=== PATIENT | male | born 1945 | race Caucasian/White ===

== ENCOUNTER 2016-12-01 10:01 | Outpatient (CLI) | payer MEDICARE ==
--- NOTE | 2016-12-01 11:20 | XRAY Report ---
TWO VIEW CHEST: 12/01/2016 CLINICAL INDICATION: Shortness of breath. FINDINGS: Frontal and lateral views of the chest demonstrate a normal cardiac silhouette. The lungs are clear. No effusion or pneumothorax is present. IMPRESSION: NORMAL CHEST. JOB #: [id number] EXT JOB #:[id number]
== END 2016-12-01 10:02 | disposition home or self-care (01) ==
LOC: DI.S 10:01
PROVIDERS: ATTEND Nurse Practitioner Family
DX: R06.02 Shortness of breath (principal); R07.9 Chest pain, unspecified
CPT/HCPCS: 71020

== ENCOUNTER 2016-12-28 12:15 | Outpatient (CLI) | payer MEDICARE ==
--- NOTE | 2017-01-02 11:43 | Ultrasound Report ---
CAROTID DUPLEX: 12/28/2016 CLINICAL INDICATION: Vertigo. TECHNIQUE: Real-time sonographic vascular imaging was performed by the revenue enforcement agent through the carotid arteries utilizing both color-flow and Doppler spectral analysis. Multiple union representative static images were saved for review. Vessel PSV cm/sec 2D Plaque Estimate % EDV cm/sec ICA/CCA PSV % Stenosis RCCA Prox 100 -- RCCA Dist 62 15 -- RECA 78 -- RT BULB 76 -- 24 1.23 REMY Prox 78 -- 19 1.26 REMY Mid 80 -- 30 1.29 REMY Dist 76 -- 28 1.23 RVA 29 RVA flow direction: Antegrade. Vessel PSV cm/sec 2D Plaque Estimate % EDV cm/sec ICA/CCA PSV % Stenosis LCCA Prox 87 -- LCCA Dist 62 16 -- LECA 62 -- LFT BULB 56 -- 20 0.90 LICA Prox 87 -- 24 1.40 LICA Mid 91 -- 28 1.47 LICA Dist 66 -- 22 1.06 LVA 47 LVA flow direction: Antegrade. Velocity criteria are extrapolated from diameter data as defined by the Society of Radiologists in Ultrasound Consensus Conference Radiology 2003; 229; 340-346. Degree of Stenosis % ICA PSV cm/sec Plaque Estimate % ICA/CCA RSV Ratio ICA EDV cm/sec Normal < 125 None < 2.0 < 40 <50 < 125 < 50 < 2.0 < 40 50-69 125 - 130 >/= 50 2.0 - 4.0 40 - 100 >/= 70 but less than near occlusion > 230 >/= 50 > 4.0 > 100 Near occlusion High, low, or undetectable Visible lumen Variable Variable Total occlusion Undetectable No detectable lumen Not applicable Not applicable FINDINGS RIGHT: There is minimal plaquing in the right carotid bifurcation, without evidence of a focal hemodynamically significant stenosis. LEFT: There is minimal plaquing in the left carotid bifurcation, without evidence of a focal hemodynamically significant stenosis. The vertebral arteries demonstrate antegrade flow bilaterally. IMPRESSION: MINIMAL PLAQUING BILATERALLY. NO EVIDENCE OF A FOCAL HEMODYNAMICALLY SIGNIFICANT CAROTID STENOSIS. MTDD
== END 2016-12-28 12:16 | disposition home or self-care (01) ==
LOC: DI 12:15
PROVIDERS: ATTEND Nurse Practitioner Family
DX: R42 Dizziness and giddiness (principal); R07.89 Other chest pain; E78.5 Hyperlipidemia, unspecified
CPT/HCPCS: 93017; 93880

== ENCOUNTER 2016-12-28 13:54 | Outpatient (CLI) | payer MEDICARE ==
--- NOTE | 2016-12-29 03:37 | CARDIAC PROCEDURE NOTE ---
DATE OF SERVICE: 12/28/2016 00:00:00 PRIMARY CARE PHYSICIAN: RA Antunez. PROCEDURE: Cardiac treadmill stress test. REASON FOR PROCEDURE: Chest pain. CARDIAC RISK FACTORS: Include age and hyperlipidemia. PREVIOUS CARDIAC PROCEDURES: None. CLINICAL HISTORY: A 71-year-old male without known coronary artery disease. INITIAL RESTING VITAL SIGNS: Blood pressure 150/82, heart rate 67, height 71 inches, weight 205 pound s, BMI 28.2. PROCEDURE AND FINDINGS: The patient's identity and date verified. Consent signed. The patient p erformed treadmill exercise using a Ben protocol completing 6 minutes 15 seconds and completing an estimated workload of 7.0 metabolic equivalents. Predicted exercise time was 6 minutes 45 seconds to 6 minutes 55 seconds. Maximal blood pressure was 198/72 with a heart rate of 148 beats per minute or 100% of maximum predicted heart rate for age. The blood pressure response to exercise was within norm al limits. The patient stopped because of symptoms of shortness of breath and he achieved 100% predic libertad heart rate. The resting ECG demonstrated normal sinus rhythm with no abnormalities. Maximum ST se gment depression was less than 0.5 mm and upsloping. There was no ectopy. The 1 minute of recovery he art rate was within normal limits. FINAL IMPRESSION 1. Negative stress electrocardiogram for ischemia by electrocardiographic criteria. 2. Negative stress test clinically for angina. 3. No ectopy or arrhythmia. 4. [place] [employer] functional class 1. JOB #: [id number] EXT JOB #:[id number]
[2017-01-02 16:02] VITALS: BP 150/82
== END 2016-12-28 13:55 | disposition home or self-care (01) ==
LOC: DI 13:54
PROVIDERS: ATTEND Nurse Practitioner Family
DX: R07.89 Other chest pain (principal)
CPT/HCPCS: 93017

== ENCOUNTER 2017-07-31 19:24 | Outpatient (CLI) | payer MEDICARE ==
--- NOTE | 2017-08-01 09:48 | XRAY Report ---
TWO VIEW LEFT LOWER LE07/31/2017 CLINICAL INDICATION: Calf pain. FINDINGS: Frontal and lateral views of the left lower leg demonstrate no evidence of fracture or dislocation. No radiopaque foreign body is seen in the soft tissues. IMPRESSION: NORMAL LEFT LOWER LEG. TD: 08/01/2017 09:47
--- NOTE | 2017-08-01 10:04 | Ultrasound Report ---
EXAM: LEFT LOWER EXTREMITY VENOUS ULTRASOUND EXAM DATE: 07/31/2017 07:37 PM. CLINICAL HISTORY: PERSISTENT CALF PAIN X 1.5 MO, LOWER LEG PAIN . ASSESS FOR DVT. COMPARISON: None. TECHNIQUE: Real-time sonographic vascular imaging was performed by the salon supervisor through the lower extremity utilizing both color-flow and Doppler spectral analysis. Multiple financial services sales representative static alessio ges were saved for review. FINDINGS: Common Femoral Vein (CFV): Normal. CFV-GSV Junction: Normal. Profunda Femoral Vein (PFV): Normal. Femoral Vein (FV) Prox: Normal. Femoral Vein (FV) Mid: Normal. Femoral Vein (FV) Dist: Normal. Popliteal Vein: Normal. Posterior Tibial Veins: Normal. Peroneal Veins: Normal. Other: Along the left knee is pocket of fluid measuring 4.9 x 1.2 x 3.3 cm which appears to represent a left knee effusion. IMPRESSION: 1. No evidence of left lower extremity deep venous thrombosis. 2. Left knee effusion. [facility] Referring Provider Line: [phone] SITE ID: [id number]
--- NOTE | 2017-08-01 15:14 | XRAY Report ---
THREE VIEW LEFT KNEE: 07/31/2017 CLINICAL INDICATION: Calf pain. FINDINGS: AP, lateral, sunrise views of the left knee demonstrate no evidence of fracture or dislocation. The joint spaces are preserved. No effusion is present. IMPRESSION: NORMAL LEFT KNEE. TD: 08/01/2017 09:49 MTDD
== END 2017-07-31 19:25 | disposition home or self-care (01) ==
LOC: DI 19:24
PROVIDERS: ATTEND Registered Nurse
DX: M79.662 Pain in left lower leg (principal); M25.462 Effusion, left knee

== ENCOUNTER 2018-09-09 16:25 | Outpatient (CLI) | payer MEDICARE ==
--- NOTE | 2018-09-10 09:48 | XRAY Report ---
Reason: COUGH Procedure Date: 09/09/2018 Accession Number: [id number] / [id number] Procedure: XR - Chest 2 View X-Ray CPT Code: 28752 FULL RESULT: EXAM: CHEST RADIOGRAPHY EXAM DATE: 09/09/2018 04:33 PM. CLINICAL HISTORY: COUGH. COMPARISON: CHEST 2 VIEW PA/LAT 12/01/2016 10:14 AM. TECHNIQUE: 2 views. FINDINGS: Lungs/Pleura: No focal opacities evident. No pleural effusion. No pneumothorax. Normal volumes. Mediastinum: Heart and mediastinal contours are unremarkable. Other: None. IMPRESSION: Normal 2-view chest radiography. [facility]
== END 2018-09-09 16:26 | disposition home or self-care (01) ==
LOC: DI 16:25
PROVIDERS: ATTEND Nurse Practitioner Family
DX: R05 Cough (principal)
CPT/HCPCS: 71046

== ENCOUNTER 2023-04-28 23:19 | Outpatient (CLI) | payer MEDICARE | END 2023-04-28 23:59 | disposition EMS.NT | LOC: EMS 23:19 | DX: R42 Dizziness and giddiness (principal); W18.30XA Fall on same level, unspecified, initial encounter; Y92.019 Unspecified place in single-family (private) house as the place of occurrence of the external cause; F10.90 Alcohol use, unspecified, uncomplicated ==

== ENCOUNTER 2023-04-28 23:59 | Emergency (ER) | payer MEDICARE ==
[2023-04-29 00:07] VITALS: O2SAT 98
[2023-04-29 00:30] LABS: BASOPHILS % (AUTO) 0.6 %; EOSINOPHILS # (AUTO) 0.1 10^3/uL (0.0-0.7); EOSINOPHILS % (AUTO) 2.9 %; HGB - HEMOGLOBIN 11.9 g/dL (14.0-18.0); LYMPHOCYTES # (AUTO) 1.5 10^3/uL (1.5-3.5); MEAN CORPUSCULAR HEMOGLOBIN 28.3 pg (27.0-31.0); MEAN CORPUSCULAR HGB CONC 32.2 g/dL (32.0-36.0); MEAN CORPUSCULAR VOLUME 87.9 fL (80.0-94.0); MEAN PLATELET VOLUME 11.3 fL (7.4-11.4); MONOCYTES # (AUTO) 0.4 10^3/uL (0.0-1.0); MONOCYTES % (AUTO) 8.1 %; NEUTROPHILS # (AUTO) 2.8 10^3/uL (1.5-6.6); PLT - PLATELET COUNT 167 10^3/uL (130-450); RED BLOOD COUNT 4.21 10^6/uL (4.70-6.10); RED CELL DISTRIBUTION WIDTH 13.2 % (12.0-15.0); WHITE BLOOD COUNT 4.8 x10^3/uL (4.8-10.8)
[2023-04-29 00:47] LABS: ALBUMIN/GLOBULIN RATIO 1.6 (1.0-2.2); BILIRUBIN,TOTAL 0.2 mg/dL (0.2-1.0); CALCIUM 9.1 mg/dL (8.5-10.3); CREATININE 0.8 mg/dL (0.6-1.3); POTASSIUM 3.4 mmol/L (3.5-4.5); TOTAL PROTEIN 6.5 g/dL (6.4-8.9)
[2023-04-29 00:52] LABS: BILIRUBIN,URINE NEGATIVE (NEGATIVE); GLUCOSE, URINE (UA) NEGATIVE (NEGATIVE); KETONES,URINE (UA) TRACE mg/dL (NEGATIVE); LEUKOCYTE ESTERASE, URINE NEGATIVE (NEGATIVE); NITRITE,URINE NEGATIVE (NEGATIVE); OCCULT BLOOD,URINE NEGATIVE (NEGATIVE); PH,URINE 5.5 PH (5.0-7.5); PROTEIN,URINE NEGATIVE (NEGATIVE); UROBILINOGEN,URINE 0.2 (NORMAL) E.U./dL (NORMAL)
[2023-04-29 00:56] LABS: CLARITY,URINE CLEAR (CLEAR)
--- NOTE | 2023-04-29 01:13 | ED Physician Documentation ---
History of Present Illness - Stated complaint Stated Complaint: FALL - Chief complaint Chief Complaint: General - History obtained from History obtained from: Patient - Additonal information Additional information: 77-year-old male presents for right ankle injury and evaluation after fall prior to arrival. Patient states that he has felt lightheaded throughout the day, and when getting up to go get some water at home he felt suddenly globally weak and fell to the ground. He denies hitting his head, denies loss of consciousness, denies use of blood thinners. He states he currently feels back to normal, but does have residual right ankle pain. He states prior to the incident he did not have any chest pain, shortness of breath, abdominal pain. Review of Systems Constitutional: denies: Fever, Chills Cardiac: denies: Chest pain / pressure, Palpitations, Calf pain Respiratory: denies: Dyspnea, Cough, Wheezing GI: denies: Abdominal Pain, Nausea, Vomiting : denies: Dysuria, Frequency, Hesitancy Musculoskeletal: reports: Joint pain, Joint swelling. denies: Neck pain, Back pain Neurologic: reports: Generalized weakness (resolved). denies: Focal weakness, Numbness, Syncope, Seizure, Confused, Headache, Head injury, LOC PD PAST MEDICAL HISTORY - Past Medical History Past Medical History: Yes Cardiovascular: High cholesterol : Benign prostate hypertrophy Psych: Depression - Past Surgical History Past Surgical History: Yes - Present Medications Home Medications: Ambulatory Orders Medication Instructions Recorded Confirmed FLUoxetine [PROzac] 20 mg PO DAILY 04/29/23 04/29/23 Finasteride [Proscar] 5 mg PO DAILY 04/29/23 04/29/23 HYDROcod/ACETAM 5/325 [[place] 5/325] 1 - 2 tab PO Q6H PRN #15 tablet 04/29/23 Latanoprost 0.005% Ophth Drops 1 drops EACHEYE DAILY 04/29/23 04/29/23 [Xalatan Ophth Drops] Lovastatin 40 mg PO DAILY 04/29/23 04/29/23 buPROPion HCL [Bupropion Xl] 150 mg PO DAILY 04/29/23 04/29/23 - Allergies Allergies/Adverse Reactions: Allergies Allergy/AdvReac Type Severity Reaction Status Date / Time No Known Drug Allergies Allergy Verified 04/29/23 00:02 - Social History Does the pt smoke?: No Smoking Status: Never smoker Does the pt drink ETOH?: No Does the pt have substance abuse?: No - Immunizations Immunizations are current?: Yes PD ED PE NORMAL - Vitals Vital signs reviewed: Yes - General General: Alert and oriented X 3, No acute distress, Well developed/nourished - Cardiac Cardiac: RRR, Strong equal pulses - Respiratory Respiratory: No respiratory distress, Clear bilaterally - Abdomen Abdomen: Soft, Non tender, Non distended - Derm Derm: Normal color, Warm and dry, No rash - Extremities Extremities: Normal ROM s pain, Other (L lateral malleolar tenderness, swelling present) - Neuro Neuro: Alert and oriented X 3, circus artist 2-12 intact, No motor deficit, Normal speech - Psych Psych: Normal mood, Normal affect Results - Vitals Vitals: Vital Signs - 24 hr 04/29/23 04/29/23 00:03 04:13 Temperature 36.8 C Heart Rate 68 60 Respiratory 16 18 Rate Blood Pressure 132/63 H 167/87 H O2 Saturation 98 98 Oxygen O2 Source Room air - Labs Labs: Laboratory Tests 04/29/23 04/29/23 04/29/23 00:26 00:26 00:26 WBC 4.8 RBC 4.21 L Hgb 11.9 L Hct 37.0 L MCV 87.9 MCH 28.3 MCHC 32.2 RDW 13.2 Plt Count 167 MPV 11.3 Neut # (Auto) 2.8 Lymph # (Auto) 1.5 [place] # (Auto) 0.4 Eos # (Auto) 0.1 Baso # (Auto) 0.0 Absolute Nucleated RBC 0.00 Nucleated RBC % 0.0 Sodium 138 Potassium 3.4 L Chloride 105 Carbon Dioxide 25 Anion Gap 8.0 BUN 21 H Creatinine 0.8 Estimated GFR (MDRD) 93 Glucose 97 Calcium 9.1 Total Bilirubin 0.2 AST 19 ALT 14 Alkaline Phosphatase 48 Total Creatine Kinase 161 Troponin I High Sens 3.0 Total Protein 6.5 Albumin 4.0 Globulin 2.5 Albumin/Globulin Ratio 1.6 Urine Color Urine Clarity Urine pH Ur Specific Gordon Urine Protein Urine Glucose (UA) Urine Ketones Urine Occult Blood Urine Nitrite Urine Bilirubin Urine Urobilinogen Ur Leukocyte Esterase Ur Microscopic Review Urine Culture Comments 04/29/23 00:36 WBC RBC Hgb Hct MCV MCH MCHC RDW Plt Count MPV Neut # (Auto) Lymph # (Auto) [place] # (Auto) Eos # (Auto) Baso # (Auto) Absolute Nucleated RBC Nucleated RBC % Sodium Potassium Chloride Carbon Dioxide Anion Gap BUN Creatinine Estimated GFR (MDRD) Glucose Calcium Total Bilirubin AST ALT Alkaline Phosphatase Total Creatine Kinase Troponin I High Sens Total Protein Albumin Globulin Albumin/Globulin Ratio Urine Color YELLOW Urine Clarity CLEAR Urine pH 5.5 Ur Specific Gordon 1.015 Urine Protein NEGATIVE Urine Glucose (UA) NEGATIVE Urine Ketones TRACE Urine Occult Blood NEGATIVE Urine Nitrite NEGATIVE Urine Bilirubin NEGATIVE Urine Urobilinogen 0.2 (NORMAL) Ur Leukocyte Esterase NEGATIVE Ur Microscopic Review NOT INDICATED Urine Culture Comments NOT INDICATED PD Medical Decision Making - ED course Complexity details: reviewed results, re-evaluated patient, considered differential, d/w patient, d/w family ED course: Well-appearing patient with episode of global weakness causing a ground-level fall after getting up. Preceding lightheadedness throughout the day. In the exam room patient denies complaints other than his right ankle swelling. Hemodynamically stable, no physical exam abnormalities. Laboratory work is reviewed, unremarkable, electrolytes are normal, no troponin elevation, EKG is normal sinus rhythm with normal QRS and normal QTc. X-ray does show what appears to be a fibular fracture on the left-hand side. Patient placed in splint and given referral to orthopedic surgery. No obvious explaination for symptoms. Possibly related to orthostatics since patient reports fall happened after getting up to walk to get water. Patient advised to drink plenty of fluids and follow up with orthopedic surgery. Pain medications sent to pharmacy of choice. Departure - Departure Disposition: 01 Home, Self Care Clinical Impression: Fibula fracture Condition: Stable Instructions: ED Cast Care Fiberglass, ED Fx Lower Ext, ED Weakness [facility] Follow-Up: Pelon Lara MD [Provider Admit Priv/Credential] - Prescriptions: HYDROcod/ACETAM 5/325 [[place] 5/325] 1 - 2 tab PO Q6H PRN #15 tablet PRN Reason: Pain Forms: PCP List Discharge Date/Time: 04/29/23 04:13
--- NOTE | 2023-04-29 01:37 | XRAY Report ---
PROCEDURE: Chest 1V INDICATIONS: near syncope TECHNIQUE: One view of the chest was acquired. COMPARISON: None. FINDINGS: Surgical changes and devices: None. Lungs and pleura: No pleural effusions or pneumothorax. Lungs are mildly abnormal with a chronic mi ld interstitial prominence. Mediastinum: Mediastinal contours appear normal. Heart size is at the upper limits of normal in siz e. Bones and chest wall: No suspicious bony lesions. Overlying soft tissues appear unremarkable. IMPRESSION: No acute cardiopulmonary process. Chronic mild interstitial prominence, heart size at the upper limits of normal. This has been chronic ally present. Reviewed by: Aldo White MD on 04/29/2023 1:36 AM PST Approved by: Aldo White MD on 04/29/2023 1:36 AM PST Station ID: [id number]
--- NOTE | 2023-04-29 01:38 | CT Report ---
PROCEDURE: Head WO INDICATIONS: glf, near syncope, lightheaded TECHNIQUE: Noncontrast 4.5 mm thick angled axial sections acquired from the foramen magnum to the vertex. For r adiation dose reduction, the following was used: automated exposure control, adjustment of mA and/or kV according to patient size. COMPARISON: None. FINDINGS: Image quality: Excellent. CSF spaces: Basal cisterns are patent. No extra-axial fluid collections. Ventricles are normal in size and shape. Brain: No midline shift. No intracranial masses or hemorrhage. Telles-white matter interface is norm al. Skull and face: Calvarium and visualized facial bones are intact, without suspicious lesions. Sinuses: Visualized sinuses and mastoids are clear. IMPRESSION: No acute intracranial pathology. Reviewed by: Aldo White MD on 04/29/2023 1:37 AM PST Approved by: Aldo White MD on 04/29/2023 1:37 AM [facility] Station ID: [id number]
--- NOTE | 2023-04-29 01:40 | XRAY Report ---
PROCEDURE: Ankle 3+V RT INDICATIONS: GLF/SWELLING/PAIN TECHNIQUE: 3 views of the ankle were acquired. COMPARISON: None. FINDINGS: Bones: No dislocations. There is a subtle fracture involving the lateral malleolus, nondisplaced, w ith overlying soft tissue swelling. Ankle mortise is normally aligned. No suspicious bony lesions. Soft tissues: No tibiotalar joint effusion. Achilles tendon appears normal. IMPRESSION: No acute bony abnormality. Soft tissue swelling over the lateral malleolus with associated faintly visualized underlying fractur e involving the lateral malleolus at the ankle mortise joint level. This is seen on one view only. Reviewed by: Aldo White MD on 04/29/2023 1:39 AM PST Approved by: Aldo White MD on 04/29/2023 1:39 AM PST Station ID: [id number]
[2023-04-29 04:19] VITALS: BP 167/87
== END 2023-04-29 04:13 | disposition home or self-care (01) ==
LOC: ED 23:59
DX: S82.64XA Nondisplaced fracture of lateral malleolus of right fibula, initial encounter for closed fracture (principal); M97.21XA Periprosthetic fracture around internal prosthetic right ankle joint, initial encounter; X50.1XXA Overexertion from prolonged static or awkward postures, initial encounter
CPT/HCPCS: 36415; 80053; 81001; 81003; 82550; 84484; 85025; 87086; 93005; 99284

== ENCOUNTER 2023-05-07 08:00 | Outpatient (CLI) | payer MEDICARE ==
--- NOTE | 2023-05-07 16:31 | XRAY Report ---
PROCEDURE: Ankle 3 View RT INDICATIONS: RIGHT ANKLE FRACTURE TECHNIQUE: 3 views of the ankle were acquired. COMPARISON: X-ray 04/29/2023 FINDINGS: Bones: Ankle fracture, as follows: Lateral malleolus / distal fibula: Transsyndesmotic (Cruz B). Medial malleolus: Fracture present. Posterior malleolus: No displaced fracture. Medial clear space: Less than 4 mm, not widened. Lateral clear space: Less than 5 mm, within normal limits. Soft tissues: Tibiotalar effusion present. Ankle swelling present. IMPRESSION: Cruz B ankle fracture. No radiographic features of an unstable fracture. This is not significantly c hanged from prior. Reviewed by: Rayshawn Duran MD on 05/07/2023 4:30 PM PST Approved by: Rayshawn Duran MD on 05/07/2023 4:30 PM [facility] Station ID: [id number]
== END 2023-05-07 23:59 | disposition home or self-care (01) ==
LOC: DI.WOS 08:00
PROVIDERS: ATTEND Physician Assistant Surgical
DX: S82.841D Displaced bimalleolar fracture of right lower leg, subsequent encounter for closed fracture with routine healing (principal)

== ENCOUNTER 2023-06-11 11:25 | Outpatient (CLI) | payer MEDICARE ==
--- NOTE | 2023-06-11 14:47 | XRAY Report ---
PROCEDURE: Ankle 3 View RT INDICATIONS: RIGHT ANKLE FRACTURE TECHNIQUE: 3 views of the ankle were acquired. COMPARISON: 04/21/2023, 05/07/2023 FINDINGS: Bones: Redemonstration of minimally displaced oblique fracture of the distal right fibula. Slight in terval decrease in fracture line conspicuity. Ankle mortise is normally aligned. No suspicious bony lesions. Soft tissues: No substantial tibiotalar joint effusion. Achilles tendon appears normal. IMPRESSION: Stable alignment of minimally displaced oblique fracture of the distal right fibula with preservation of the ankle mortise. Decreased fracture line conspicuity consistent with progress towards fracture healing. Reviewed by: William Campos MD on 06/11/2023 1:45 PM [facility] Approved by: William Campos MD on 06/11/2023 1:45 PM [facility] Station ID: [id number]
== END 2023-06-11 23:59 | disposition home or self-care (01) ==
LOC: DI.WOS 11:25
PROVIDERS: ATTEND Physician Assistant Surgical
DX: S82.431D Displaced oblique fracture of shaft of right fibula, subsequent encounter for closed fracture with routine healing (principal)